=== PATIENT | female | born 1995 | race Caucasian/White ===

== ENCOUNTER 2017-01-03 12:37 | Emergency (ER) | payer MEDICAID ==
[~2017-01-03] VITALS: Ht 149.9 cm; Wt 66.8 kg
[2017-01-03 12:41] VITALS: Ht 149.9 cm; Wt 66.8 kg
--- NOTE | 2017-01-03 13:41 | ERD ---
ER Documentation Chief Complaint Date/Time DATE: 01/03/17 TIME: 13:39 Chief Complaint Sent by OB to R/O Etopic HPI 21-year-old female who is with last menstrual period on November 09 comes in with vaginal bleeding for 5 days, with left-sided abdominal pain for the past 3 days. She was sent into the emergency department by her OB who is Dr. Baeza, to rule out ectopic . She has left upper quadrant pain, she has had some mild to moderate vaginal bleeding. She has not had any fevers or chills. ROS All systems reviewed and are negative except as per history of present illness. Allergies Allergies: Coded Allergies: No Known Allergy (Unverified , 01/03/17) PMhx/Soc Medical and Surgical Hx: pt denies Surgical Hx History of Surgery: No Anesthesia Reaction: No Hx Neurological Disorder: No Hx Respiratory Disorders: Yes (Asthma) Hx Cardiac Disorders: No Hx Psychiatric Problems: No Hx Miscellaneous Medical Probl: Yes () Hx Alcohol Use: No Hx Substance Use: No Hx Tobacco Use: No Smoking Status: Current every day smoker Physical Exam Vitals Vital Signs Date Time Temp Pulse Resp B/P Pulse Ox O2 Delivery O2 Flow Rate FiO2 01/03/17 12:41 99.5 66 18 122/58 99 Physical Exam General: Well-developed, well-nourished. The patient appears in no acute distress. HEENT: Head is normocephalic, atraumatic. No scleral icterus. Neck: Supple. Nontender. Lungs: Clear to auscultation. Normal air movement. Heart: Regular rate and rhythm. S1 and S2 are normal. No murmurs, gallops, or rubs. Abdomen: Soft, patient has no tenderness to left upper quadrant nondistended. Bowel sounds are normoactive. Extremities: No clubbing or cyanosis. Normal pulses. Moving extremities x 4. No weakness. Neurologic: Alert and oriented 3. No focal deficits. Skin: Normal turgor. No rash or lesions. Result Diagram: 01/03/17 1350 Results 24 hrs Laboratory Tests Test 01/03/17 13:50 White Blood Count 10.210^3/ul Red Blood Count 4.1210^6/ul Hemoglobin 12.9g/dl Hematocrit 37.3% Mean Corpuscular Volume 90.5fl Mean Corpuscular Hemoglobin 31.3pg Mean Corpuscular Hemoglobin Concent 34.6g/dl Red Cell Distribution Width 13.0% Platelet Count 87652^3/UL Mean Platelet Volume 10.6fl Neutrophils % 67.4% Lymphocytes % 26.5% Monocytes % 5.2% Eosinophils % 0.3% Basophils % 0.3% Nucleated Red Blood Cells % 0.0/100WBC Neutrophils # 6.910^3/ul Lymphocytes # 2.710^3/ul Monocytes # 0.510^3/ul Eosinophils # 0.010^3/ul Basophils # 0.010^3/ul Nucleated Red Blood Cells # 0.010^3/ul Urine Color YELLOW Urine Clarity SLIGHTLY CLOUDY Urine pH 8.0 Urine Specific [place] 1.017 Urine Ketones NEGATIVEmg/dL Urine Nitrite NEGATIVEmg/dL Urine Bilirubin NEGATIVEmg/dL Urine Urobilinogen 1+mg/dL Urine Leukocyte Esterase NEGATIVELeu/ul Urine Microscopic RBC 0/HPF Urine Microscopic WBC 1/HPF Urine Squamous Epithelial Cells FEW/HPF Urine Hemoglobin NEGATIVEmg/dL Urine Glucose NEGATIVEmg/dL Urine Total Protein NEGATIVEmg/dl Beta HCG, Quantitative 24549.0mIU/ml PROCEDURE: US OB. CLINICAL INDICATION: 21-year-old female with vaginal bleeding. TECHNIQUE: Transabdominal and transvaginal views of the pelvis are available for review. COMPARISON: No prior studies are available for comparison. FINDINGS: The uterus is anteflexed and contains a single gestational sac. The uterus measured 8.9 cm sagittal by 5.1 cm AP. The gestational sac measured 2.1 x 1.7 x 2.2 cm. Mean sac diameter: 1.97 cm. This calculates to 6 weeks 6 days. Only debrided is identified with no pole in the gestational sac. Some free fluid is identified in the cul-de-sac. Placenta: Circumferential. Yolk Sac: 5.7 mm. Presentation: No pole is identified. [place]-rump length: heart rate: Amniotic fluid volume: Normal. No ovarian or adnexal mass lesion is seen. The left ovary measures 2.6 x 1.3 x 1.6 cm with normal blood flow on Doppler imaging. A 1.9 x 1.7 by 1.8 cm corpus luteal cyst is identified in the left ovary. The right ovary measures 2.6 x 1.3 x 1.6 cm with normal blood flow. IMPRESSION: 1. Blighted ovum with no pole identified. 2. 1.8 cm left corpus luteal cyst. 3. Normal ovaries. 4. A small amount of free fluid is noted in the cul-de-sac. RPTAT:AAJJ Babar Drake Physician Date Time Electronically viewed and signed by Babar Darke Physician on 01/03/2017 14:44 JM/ CC: SADI HARTLEY PA-C Procedures/[facility] Medical decision making: This is a 21-year-old female, presenting with vaginal bleeding and left upper quadrant abdominal pain, patient's ultrasound shows a gestational sac that is in the uterus, this was discussed with Dr. Baeza. No confirmed intrauterine seen and patient's follow-up appointment is on Friday, he sees at this time that she may follow-up with him in the point office. HCG was approximately 10,100 with a type and Rh O+. She does not meet requirements to receive RhoGam at this time. Ectopic precautions were discussed at length with the patient, which she understands. Departure Diagnosis: Primary Impression: Vaginal bleeding in Condition: SADI Chen PA-C Jan 03, 2017 13:40
[2017-01-03 13:55] LABS: ADD SCAN DIFF NO
[2017-01-03 13:57] LABS: BASOPHILS % 0.3 % (0.0-2.0); EOSINOPHILS % 0.3 % (0.0-7.0); HEMATOCRIT 37.3 % (37.0-47.0); HEMOGLOBIN 12.9 g/dl (12.0-16.0); LYMPHOCYTES # 2.7 10^3/ul (0.8-2.9); LYMPHOCYTES % 26.5 % (15.0-51.0); MEAN CORPUSCULAR HEMOGLOBIN 31.3 pg (29.0-33.0); MEAN CORPUSCULAR HGB CONC 34.6 g/dl (32.0-37.0); MEAN CORPUSCULAR VOLUME 90.5 fl (82.0-101.0); MEAN PLATELET VOLUME 10.6 fl (7.4-10.4); MONOCYTE # 0.5 10^3/ul (0.3-0.9); MONOCYTES % 5.2 % (0.0-11.0); NEUTROPHIL # 6.9 10^3/ul (1.6-7.5); NEUTROPHILS % 67.4 % (39.0-77.0); PLATELET COUNT 322 10^3/UL (140-415); RED BLOOD COUNT 4.12 10^6/ul (4.20-5.40); WHITE BLOOD COUNT 10.2 10^3/ul (4.8-10.8)
[2017-01-03 14:01] LABS: ADD UMIC NO; UR ASCORBIC ACID NEGATIVE (NEGATIVE); UR BILIRUBIN (Dip) NEGATIVE (NEGATIVE); UR BLOOD (Dip) NEGATIVE (NEGATIVE); UR CLARITY SLIGHTLY CLOUDY (CLEAR); UR COLOR YELLOW (YELLOW); UR GLUCOSE (Dip) NEGATIVE (NEGATIVE); UR KETONES (Dip) NEGATIVE (NEGATIVE); UR LEUKOCYTE ESTERASE (Dip) NEGATIVE Leu/ul (NEGATIVE); UR NITRITE (Dip) NEGATIVE (NEGATIVE); UR RBC 0 /HPF (0-5); UR SPECIFIC GRAVITY (Dip) 1.017 (1.003-1.030); UR SQUAMOUS EPITHELIAL CELL FEW /HPF (FEW); UR TOTAL PROTEIN (Dip) NEGATIVE (NEGATIVE); UR UROBILINOGEN (Dip) 1+ mg/dL (NEGATIVE)
--- NOTE | 2017-01-03 14:45 | RADRPT ---
PROCEDURE: US OB. CLINICAL INDICATION: 21-year-old female with vaginal bleeding. TECHNIQUE: Transabdominal and transvaginal views of the pelvis are available for review. COMPARISON: No prior studies are available for comparison. FINDINGS: The uterus is anteflexed and contains a single gestational sac. The uterus measured 8.9 cm sagittal by 5.1 cm AP. The gestational sac measured 2.1 x 1.7 x 2.2 cm. Mean sac diameter: 1.97 cm. This calculates to 6 weeks 6 days. Only debrided is identified with no pole in the gestational sac . Some free fluid is identified in the cul-de-sac. Placenta: Circumferential. Yolk Sac: 5.7 mm. Presentation:No pole is identified. [place]-rump length: heart rate: Amniotic fluid volume: Normal. No ovarian or adnexal mass lesion is seen. The left ovary measures 2.6 x 1.3 x 1.6 cm with normal bl ood flow on Doppler imaging. A 1.9 x 1.7 by 1.8 cm corpus luteal cyst is identified in the left ova ry. The right ovary measures 2.6 x 1.3 x 1.6 cm with normal blood flow. IMPRESSION: 1. Blighted ovum with no pole identified. 2. 1.8 cm left corpus luteal cyst. 3. Normal ovaries. 4. A small amount of free fluid is noted in the cul-de-sac. RPTAT:AAJJ Physician Wilver Date Time Electronically viewed and signed by Physician Wilver on 01/03/2017 14:44 JESSICA/
[2017-01-03 16:18] VITALS: BP 104/58; PULSE 62; RESP 12; TEMP 99.1
== END 2017-01-03 16:20 | disposition home or self-care (01) ==
LOC: FTE 12:37
DX: O20.9 Hemorrhage in early pregnancy, unspecified (principal); O99.511 Diseases of the respiratory system complicating pregnancy, first trimester; J45.909 Unspecified asthma, uncomplicated; O99.331 Smoking (tobacco) complicating pregnancy, first trimester; F17.210 Nicotine dependence, cigarettes, uncomplicated; Z3A.01 Less than 8 weeks gestation of pregnancy
CPT/HCPCS: 76801; 76817; 81001; 84702; 85025; 86900; 86901; Z7502; 81003

== ENCOUNTER 2017-01-11 11:06 | Emergency (ER) | payer MEDICAID ==
[~2017-01-11] VITALS: Ht 149.9 cm; Wt 64.0 kg
[2017-01-11 11:08] VITALS: Ht 149.9 cm; Wt 64.0 kg
[2017-01-11] MEDS ORDERED: ACETAMINOPHEN 325 MG TAB PO STA (11:18)
--- NOTE | 2017-01-11 11:25 | ERD ---
ER Documentation Chief Complaint Date/Time DATE: 01/11/17 TIME: 11:21 Chief Complaint VAG BLEED WITH CRAMPS , 8 WEEKS PREG , LMP 11/17/16 HPI This is a 21-year-old female presents emergency department for vaginal bleeding with pelvic pain while . Patient states she has severe vaginal bleeding with passage of multiple large clots. Patient was seen here previously about 1 week ago for spotting without heavy vaginal bleeding. No abdominal pain. No nausea, vomiting or diarrhea. Patient states her last menstrual period was 11/17/2016 and she believes she is currently 8 weeks . Patient is a A0. 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 No vaginal discharge, dysuria, hematuria, urinary frequency or urinary urgency. Patient is currently taking vitamins otherwise no medications. ROS All systems reviewed and are negative except as per history of present illness. Medications Home Meds Active Scripts Hydrocodone/Acetaminophen (Spencer 5-325 Tablet) 1 Each Tablet, 1 TAB PO Q6H Y for PAIN, #7 TAB Prov:TYLER LORD NP 01/11/17 Acetaminophen* (Tylenol*) 325 Mg Tablet, 1 TAB PO Q6 Y for PAIN AND OR ELEVATED TEMP, #20 TAB Prov:TYLER LORD NP 01/11/17 Allergies Allergies: Coded Allergies: No Known Allergy (Unverified , 01/11/17) PMhx/Soc History of Surgery: No Anesthesia Reaction: No Hx Neurological Disorder: No Hx Respiratory Disorders: Yes (Asthma) Hx Cardiac Disorders: No Hx Psychiatric Problems: No Hx Miscellaneous Medical Probl: Yes () Hx Alcohol Use: No Hx Substance Use: No Hx Tobacco Use: No Physical Exam Vitals Vital Signs Date Time Temp Pulse Resp B/P Pulse Ox O2 Delivery O2 Flow Rate FiO2 01/11/17 12:13 98.3 58 22 122/68 98 01/11/17 11:08 98.4 67 16 122/84 98 Physical Exam Const: Alert, anxious Head: Atraumatic Eyes: Normal Conjunctiva ENT: Normal External Ears, Nose and Mouth. Neck: Full range of motion..~ No meningismus. Resp: Clear to auscultation bilaterally. No wheezing, rhonchi or crackles. Cardio: Regular rate and rhythm, no murmurs Abd: Soft, non tender, non distended. Normal bowel sounds Skin: No petechiae or rashes Back: No midline or flank tenderness. No CVA tenderness Ext: No cyanosis, or edema Neur: Awake and alert Psych: Normal Mood and Affect Result Diagram: 01/11/17 1132 Results 24 hrs Laboratory Tests Test 01/11/17 11:32 01/11/17 11:50 White Blood Count 11.310^3/ul Red Blood Count 4.0810^6/ul Hemoglobin 12.5g/dl Hematocrit 36.7% Mean Corpuscular Volume 90.0fl Mean Corpuscular Hemoglobin 30.6pg Mean Corpuscular Hemoglobin Concent 34.1g/dl Red Cell Distribution Width 12.8% Platelet Count 99455^3/UL Mean Platelet Volume 10.6fl Neutrophils % 62.8% Lymphocytes % 31.0% Monocytes % 4.6% Eosinophils % 0.9% Basophils % 0.3% Nucleated Red Blood Cells % 0.0/100WBC Neutrophils # 7.110^3/ul Lymphocytes # 3.510^3/ul Monocytes # 0.510^3/ul Eosinophils # 0.110^3/ul Basophils # 0.010^3/ul Nucleated Red Blood Cells # 0.010^3/ul Beta HCG, Quantitative 4356.1mIU/ml Urine Color DK. YELLOW Urine Clarity BLOODY Urine pH 7.5 Urine Specific [place] 1.015 Urine Ketones NEGATIVE Urine Nitrite NEGATIVE Urine Bilirubin NEGATIVE Urine Urobilinogen 0.2 E.U./dL Urine Leukocyte Esterase NEGATIVE Urine Microscopic RBC >200/HPF Urine Bacteria FEW/HPF Urine Hemoglobin 3+ Urine Glucose 0.1%% Urine Total Protein 4+ Current Medications Medications (Trade) Dose Ordered Sig/Marquis Route PRN Reason Start Time Stop Time Status Last Admin Dose Admin Acetaminophen (Tylenol Tab) 650 mg ONCE STAT PO 01/11/17 11:18 01/11/17 11:21 DC 01/11/17 11:30 Morphine Sulfate (morphine) 4 mg ONCE STAT IV 01/11/17 11:59 01/11/17 12:01 DC 01/11/17 12:09 Procedures/[place] [id number] Radiology Main Line: [phone] DIAGNOSTIC IMAGING REPORT Patient: LAZARUS CHIU : 1995 Age: 21 Sex: F MR #: [id number] DOS: 01/11/17 1118 Ordering MD: TYLER LORD NP Location: [facility] Room/Bed: PROCEDURE: OB Ultrasound. CLINICAL INDICATION: Positive test. Vaginal bleeding. TECHNIQUE: Ultrasound of the pelvis was performed with transabdominal and transvaginal sonography in the axial and sagittal planes. COMPARISON: No prior study is available for comparison. FINDINGS: There is no intrauterine gestational sac. The uterus measures 10.5 x 4.4 x 5.3 cm. The endometrium is heterogeneous and thickened measuring 23.5 mm. The ovaries are not visualized. There is no other pelvic mass. A small amount of free fluid is present in the cul-de-sac. IMPRESSION: 1. No intrauterine gestational sac. If the patient has a positive test, ectopic gestation cannot be excluded. 2. Thickened and heterogeneous endometrium. This may indicate blood products or products of conception. 3. Ovaries not visualized. 4. Small amount of free fluid in the cul-de-sac, nonspecific. MDM: This is a 21-year-old female presenting to emergency department for vaginal bleeding with pelvic cramping while . Patient's LMP 11/09/2016 and she states she is currently 8 weeks . Patient states she is having heavy vaginal bleeding with passage of multiple large clots. Patient states pain 4-5/10 to suprapubic area. No abdominal pain. No nausea, vomiting or diarrhea. No fevers or chills. CBC is without significant anemia or infection. Beta-hCG is 4356.1 which is trending down. Type and Rh factor is O positive. Urinalysis negative for infection. Patient given Tylenol p.o. while in the ED. Upon reassessment, patient continues to have severe pain. IV access obtained per hourly sales staff and patient given 1 dose of Morphine 4mg IV. OB ultrasound reviewed by radiologist as no intrauterine gestational sac. Thickened and heterogeneous endometrium. Ovaries not visualized. Small amount of free fluid in the cul-de-sac, nonspecific . Discussed findings with patient. Upon reassessment, patient states pain has greatly improved. Vaginal bleeding has improved. Differential diagnosis includes but not limited to ectopic , threatened , missed , normal , subchorionic hemorrhage , ruptured ovarian cyst, UTI or pyelonephritis. Instructed patient to return in 2 days for repeat lab work and ultrasound. Patient is appropriate for outpatient management and will be given prescription for Tylenol and Spencer 5 mg/325 mg #7. Instructed patient to follow-up here in the ED in 2 days. Return to ED sooner for any high fever, chest pain, difficulty breathing, shortness breath, wheezing, vomiting, diarrhea, abdominal pain or any new or worsening symptoms. Patient verbalizes understanding. All questions answered at discharge. Departure Diagnosis: Primary Impression: Vaginal bleeding in patient at less than 20 weeks gestation Condition: Stable TYLER LORD NP Jan 11, 2017 11:25
[2017-01-11 11:45] LABS: BASOPHILS % 0.3 % (0.0-2.0); EOSINOPHILS # 0.1 10^3/ul (0.0-0.5); EOSINOPHILS % 0.9 % (0.0-7.0); HEMATOCRIT 36.7 % (37.0-47.0); HEMOGLOBIN 12.5 g/dl (12.0-16.0); LYMPHOCYTES # 3.5 10^3/ul (0.8-2.9); MEAN CORPUSCULAR HEMOGLOBIN 30.6 pg (29.0-33.0); MEAN CORPUSCULAR HGB CONC 34.1 g/dl (32.0-37.0); MEAN PLATELET VOLUME 10.6 fl (7.4-10.4); MONOCYTE # 0.5 10^3/ul (0.3-0.9); MONOCYTES % 4.6 % (0.0-11.0); NEUTROPHIL # 7.1 10^3/ul (1.6-7.5); NEUTROPHILS % 62.8 % (39.0-77.0); PLATELET COUNT 317 10^3/UL (140-415); RED BLOOD COUNT 4.08 10^6/ul (4.20-5.40); RED CELL DISTRIBUTION WIDTH 12.8 % (11.5-14.5); WHITE BLOOD COUNT 11.3 10^3/ul (4.8-10.8)
[2017-01-11] MEDS ORDERED: morphine 4 MG/ML VIAL IV STA (11:59)
[2017-01-11 12:17] LABS: ADD UMIC YES; UR BILIRUBIN (Dip) NEGATIVE (NEGATIVE); UR BLOOD (Dip) 3+ (NEGATIVE); UR COLOR DK. YELLOW (YELLOW); UR KETONES (Dip) NEGATIVE (NEGATIVE); UR LEUKOCYTE ESTERASE (Dip) NEGATIVE (NEGATIVE); UR NITRITE (Dip) NEGATIVE (NEGATIVE); UR TOTAL PROTEIN (Dip) 4+ (NEGATIVE); UR UROBILINOGEN (Dip) 0.2 E.U./dL (0.1-1.0)
[2017-01-11 12:37] LABS: UR CLARITY BLOODY (CLEAR)
[2017-01-11 12:43] LABS: UR BACTERIA FEW /HPF (NONE SEEN); URINE RBCS >200 /HPF (0)
--- NOTE | 2017-01-11 15:28 | RADRPT ---
PROCEDURE: OB Ultrasound. CLINICAL INDICATION: Positive test. Vaginal bleeding. TECHNIQUE: Ultrasound of the pelvis was performed with transabdominal and transvaginal sonography in the axial and sagittal planes. COMPARISON: No prior study is available for comparison. FINDINGS: There is no intrauterine gestational sac. The uterus measures 10.5 x 4.4 x 5.3 cm. The endometrium is heterogeneous and thickened measuring 23.5 mm. The ovaries are not visualized. There is no other pelvic mass. A small amount of free fluid is pre sent in the cul-de-sac. IMPRESSION: 1. No intrauterine gestational sac. If the patient has a positive test, ectopic gestatio n cannot be excluded. 2. Thickened and heterogeneous endometrium. This may indicate blood products or products of concep tion. 3. Ovaries not visualized. 4. Small amount of free fluid in the cul-de-sac, nonspecific. RPTAT: QQ .Rio Shaw MD, MD Date Time Electronically viewed and signed by .Rio Shaw MD, on 01/11/2017 15:28 .R/
[2017-01-11] MEDS ORDERED: ACET325T33 PO (15:38)
[2017-01-11] MEDS ORDERED: HYDR-906 PO (15:38)
[2017-01-11 15:50] VITALS: BP 137/78; PULSE 84; RESP 18; TEMP 98.4
== END 2017-01-11 15:50 | disposition home or self-care (01) ==
LOC: FTE 11:06
DX: O20.9 Hemorrhage in early pregnancy, unspecified (principal); J45.909 Unspecified asthma, uncomplicated; O99.511 Diseases of the respiratory system complicating pregnancy, first trimester; R10.2 Pelvic and perineal pain; Z3A.08 8 weeks gestation of pregnancy
CPT/HCPCS: 36415; 76801; 76817; 81001; 84702; 85025; 86900; 86901; 96374; J2270; Z7502; Z7610

== ENCOUNTER 2017-01-14 19:46 | Emergency (ER) | payer MEDICAID ==
[~2017-01-14] VITALS: Ht 160 cm; Wt 66.0 kg
[~2017-01-14 19:46] MED LIST: ACET325T33 PO; HYDR-906 PO
[2017-01-14 19:49] VITALS: Ht 160 cm; Wt 66.0 kg
[2017-01-14] MEDS ORDERED: ACETAMINOPHEN 500 MG TAB PO STA (20:45)
[2017-01-14 21:07] LABS: BASOPHILS % 0.4 % (0.0-2.0); EOSINOPHILS # 0.2 10^3/ul (0.0-0.5); EOSINOPHILS % 1.5 % (0.0-7.0); HEMATOCRIT 33.2 % (37.0-47.0); HEMOGLOBIN 10.8 g/dl (12.0-16.0); LYMPHOCYTES # 4.8 10^3/ul (0.8-2.9); LYMPHOCYTES % 42.1 % (15.0-51.0); MEAN CORPUSCULAR HEMOGLOBIN 29.9 pg (29.0-33.0); MEAN CORPUSCULAR HGB CONC 32.5 g/dl (32.0-37.0); MEAN PLATELET VOLUME 10.8 fl (7.4-10.4); MONOCYTE # 0.6 10^3/ul (0.3-0.9); MONOCYTES % 5.5 % (0.0-11.0); NEUTROPHIL # 5.7 10^3/ul (1.6-7.5); NEUTROPHILS % 50.2 % (39.0-77.0); PLATELET COUNT 306 10^3/UL (140-415); RED BLOOD COUNT 3.61 10^6/ul (4.20-5.40); RED CELL DISTRIBUTION WIDTH 12.9 % (11.5-14.5); WHITE BLOOD COUNT 11.3 10^3/ul (4.8-10.8)
--- NOTE | 2017-01-14 21:11 | ERD ---
ER Documentation Chief Complaint Date/Time DATE: 01/14/17 TIME: 21:10 Chief Complaint 8 weeks , vag bleeding x 1 weeks, states " i am miscarraiging' HPI This a 21-year-old female who presents the emergency department today complaining of vaginal bleeding. Patient states that that she was approximately 8 weeks . States that she has some lower pelvic pain. Denies any fevers or chills, dysuria. States she has not taken any medication for the pain ROS All systems reviewed and are negative except as per history of present illness. Medications Home Meds Active Scripts Ferrous Sulfate* (Ferrous Sulfate*) 325 Mg Tabec, 325 MG PO BID, #60 TAB Prov:LITTLE MENESES PA-C 01/14/17 Acetaminophen* (Tylophen*) 500 Mg Capsule, 1 CAP PO Q6H Y for PAIN AND OR ELEVATED TEMP, #30 CAP Prov:LITTLE MENESES PA-C 01/14/17 Hydrocodone/Acetaminophen ([place] 5-325 Tablet) 1 Each Tablet, 1 TAB PO Q6H Y for PAIN, #7 TAB Prov:TYLER LORD NP 01/11/17 Acetaminophen* (Tylenol*) 325 Mg Tablet, 1 TAB PO Q6 Y for PAIN AND OR ELEVATED TEMP, #20 TAB Prov:TYLER LORD NP 01/11/17 Allergies Allergies: Coded Allergies: No Known Allergy (Unverified , 01/11/17) PMhx/Soc History of Surgery: No Anesthesia Reaction: No Hx Neurological Disorder: No Hx Respiratory Disorders: Yes (Asthma) Hx Cardiac Disorders: No Hx Psychiatric Problems: No Hx Miscellaneous Medical Probl: Yes (, spontaneous miscarriage) Hx Alcohol Use: No Hx Substance Use: No Hx Tobacco Use: No Smoking Status: Never smoker Physical Exam Vitals Vital Signs Date Time Temp Pulse Resp B/P Pulse Ox O2 Delivery O2 Flow Rate FiO2 01/14/17 19:49 99.0 20 85 20/106 52 Physical Exam Const: No acute distress Head: Atraumatic Eyes: Normal Conjunctiva ENT: Normal External Ears, Nose and Mouth. Neck: Full range of motion..~ No meningismus. Resp: Clear to auscultation bilaterally Cardio: Regular rate and rhythm, no murmurs Abd: Soft, mild pelvic tenderness non distended. Normal bowel sounds. No tenderness [place] Skin: No petechiae or rashes Back: No midline or flank tenderness Ext: No cyanosis, or edema Neur: Awake and alert Psych: Normal Mood and Affect Result Diagram: 01/14/172052 Results 24 hrs Laboratory Tests Test 01/14/17 20:53 White Blood Count 11.310^3/ul Red Blood Count 3.6110^6/ul Hemoglobin 10.8g/dl Hematocrit 33.2% Mean Corpuscular Volume 92.0fl Mean Corpuscular Hemoglobin 29.9pg Mean Corpuscular Hemoglobin Concent 32.5g/dl Red Cell Distribution Width 12.9% Platelet Count 02607^3/UL Mean Platelet Volume 10.8fl Neutrophils % 50.2% Lymphocytes % 42.1% Monocytes % 5.5% Eosinophils % 1.5% Basophils % 0.4% Nucleated Red Blood Cells % 0.0/100WBC Neutrophils # 5.710^3/ul Lymphocytes # 4.810^3/ul Monocytes # 0.610^3/ul Eosinophils # 0.210^3/ul Basophils # 0.010^3/ul Nucleated Red Blood Cells # 0.010^3/ul Urine Color YELLOW Urine Clarity SLIGHTLY CLOUDY Urine pH 6.0 Urine Specific [place] 1.006 Urine Ketones NEGATIVEmg/dL Urine Nitrite NEGATIVEmg/dL Urine Bilirubin NEGATIVEmg/dL Urine Urobilinogen NEGATIVEmg/dL Urine Leukocyte Esterase NEGATIVELeu/ul Urine Microscopic RBC 1/HPF Urine Microscopic WBC 2/HPF Urine Squamous Epithelial Cells FEW/HPF Urine Bacteria FEW/HPF Urine Hemoglobin 3+mg/dL Urine Glucose NEGATIVEmg/dL Urine Total Protein NEGATIVEmg/dl Beta HCG, Quantitative 189.6mIU/ml Current Medications Medications (Trade) Dose Ordered Sig/Marquis Route PRN Reason Start Time Stop Time Status Last Admin Dose Admin Acetaminophen (Tylenol Tab) 500 mg ONCE STAT PO 01/14/17 20:45 01/14/17 20:47 DC 01/14/17 20:50 DIAGNOSTIC IMAGING REPORT Patient: LAZARUS CHIU : 1995 Age: 21 Sex: F MR #: [id number] DOS: 01/14/172044 Ordering MD: LITTLE MENESES PA-C Location: [facility] Room/Bed: PROCEDURE: US OB Pelvis. CLINICAL INDICATION: Vaginal bleeding, recent . Decreasing beta HCG. TECHNIQUE: Multiple sonographic images of the pelvis were obtained utilizing a transabdominal technique. The images were reviewed on a PACS workstation. COMPARISON: None. FINDINGS: The uterus is visualized and measures 7.6 x 4.4 x 6.2 cm. The endometrial echo complex is normal and measures 9 mm. There is no endometrial vascularity. No intrauterine is identified. There is no evidence for free fluid. The right ovary has a normal echotexture and measures 2.7 x 1.9 x 2.2 cm. The left ovary is not visualized.. Vascular flow is demonstrated to the right ovary. No adnexal masses are noted. IMPRESSION: 1. No sonographic evidence of retained products of conception. 2. Normal appearance of the right ovary. 3. The left ovary is not visualized. RPTAT: HTAR .Ruddy De Jesus MD, MD Date Time Electronically viewed and signed by .Ruddy De Jesus MD, MD on 01/14/2017 21:42 .R/ CC: LITTLE MENESES PA-C Procedures/[facility] This is a 21-year-old female who presents to the emergency department today complaining of vaginal bleeding. Patient states she is approximately 8 weeks. Upon review of patient's medical record she has been seen here 2 other times in the past month for vaginal bleeding in . Her last ultrasound showed no IUP and her beta quant was trending downwards. 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 Laboratory work shows a very mildly elevated white blood cell count. Her hemoglobin is decreased at 10.8. Platelets are within normal limits. There is no indication for transfusion at this time. Patient will given a prescription for iron pills. UA is negative for infection Beta quant hCG 189.6 Rh status O+ Ultrasound shows no sonographic evidence of retained products of conception. There is no intrauterine . There is no evidence of free fluid. No adnexal masses. Patient symptoms at this time is consistent with vaginal bleeding in early . Given patient's previous ultrasounds and decrease in beta quant significantly from 10 days ago patient likely has a failed or complete . I explained this to the patient. Patient is afebrile and otherwise well-appearing. I have low suspicion for ectopic , tubo ovarian abscess, ovarian torsion. Patient was given Tylenol here in the emergency department and pain improved. She was given a prescription for Tylenol for home. I also give her an iron prescription given her hemoglobin level. I have explained the results to the patient and her sister in great detail.. I have explained to the patient that they need to follow-up with her AIRFRAME DESIGN ENGINEER. Patient understood. At this time the patient is stable for discharge and outpatient management. Patient should follow up with their PCP in the next 1-2 days. They may return to the emergency department sooner for any persistent or worsening of symptoms. Patient and sister understood and agreed with the plan. Departure Diagnosis: Primary Impression: Vaginal bleeding in patient at less than 20 weeks gestation Condition: LITTLE Guerrero PA-C Jan 14, 2017 21:11
[2017-01-14 21:14] LABS: ADD UMIC YES; UR ASCORBIC ACID NEGATIVE (NEGATIVE); UR BACTERIA FEW /HPF (NONE SEEN); UR BILIRUBIN (Dip) NEGATIVE (NEGATIVE); UR BLOOD (Dip) 3+ mg/dL (NEGATIVE); UR CLARITY SLIGHTLY CLOUDY (CLEAR); UR COLOR YELLOW (YELLOW); UR GLUCOSE (Dip) NEGATIVE (NEGATIVE); UR KETONES (Dip) NEGATIVE (NEGATIVE); UR LEUKOCYTE ESTERASE (Dip) NEGATIVE Leu/ul (NEGATIVE); UR NITRITE (Dip) NEGATIVE (NEGATIVE); UR RBC 1 /HPF (0-5); UR SPECIFIC GRAVITY (Dip) 1.006 (1.003-1.030); UR SQUAMOUS EPITHELIAL CELL FEW /HPF (FEW); UR TOTAL PROTEIN (Dip) NEGATIVE (NEGATIVE); UR UROBILINOGEN (Dip) NEGATIVE (NEGATIVE)
--- NOTE | 2017-01-14 21:42 | RADRPT ---
PROCEDURE: US OB Pelvis. CLINICAL INDICATION: Vaginal bleeding, recent . Decreasing beta HCG. TECHNIQUE: Multiple sonographic images of the pelvis were obtained utilizing a transabdominal tech nique. The images were reviewed on a PACS workstation. COMPARISON: None. FINDINGS: The uterus is visualized and measures 7.6 x 4.4 x 6.2 cm. The endometrial echo complex is normal and measures 9 mm. There is no endometrial vascularity. No intrauterine is identified. Ther e is no evidence for free fluid. The right ovary has a normal echotexture and measures 2.7 x 1.9 x 2.2 cm. The left ovary is not vis ualized.. Vascular flow is demonstrated to the right ovary. No adnexal masses are noted. IMPRESSION: 1. No sonographic evidence of retained products of conception. 2. Normal appearance of the right ovary. 3. The left ovary is not visualized. RPTAT: HTAR .Ruddy De Jesus MD, Date Time Electronically viewed and signed by .Ruddy De Jesus MD, on 01/14/2017 21:42 .R/
[2017-01-14] MEDS ORDERED: FER325 PO (22:48)
[2017-01-14] MEDS ORDERED: ACET500C5 PO (22:48)
[2017-01-14 23:09] VITALS: BP 109/56; PULSE 98; RESP 16
== END 2017-01-14 23:11 | disposition home or self-care (01) ==
LOC: FTE 19:46
DX: O20.9 Hemorrhage in early pregnancy, unspecified (principal); O99.511 Diseases of the respiratory system complicating pregnancy, first trimester; J45.909 Unspecified asthma, uncomplicated; R10.2 Pelvic and perineal pain; Z3A.08 8 weeks gestation of pregnancy
CPT/HCPCS: 36415; 76801; 81001; 84702; 85025; Z7502

== ENCOUNTER 2018-09-17 20:57 | Emergency (ER) | payer SELFPAY ==
[~2018-09-17] VITALS: Ht 149.9 cm; Wt 65.7 kg
[~2018-09-17 20:57] MED LIST changes: +ACET500C5 PO; +FER325 PO; +HYDR-4011 PO; -HYDR-906 PO
[2018-09-17 21:29] VITALS: BP 128/61; PULSE 80; RESP 18; Ht 149.9 cm; Wt 65.7 kg
[2018-09-18] MEDS ORDERED: ACETAMINOPHEN 500 MG TAB PO STA (01:40)
--- NOTE | 2018-09-18 01:40 | ERD ---
ER Documentation Chief Complaint Chief Complaint vaginal bleeding/abd pain x 1 hour. states 8 weeks HPI This is a 22-year-old female who presents here in emerge department with com plaints of vaginal bleeding, pelvic pain for about an hour. States that she is 8 weeks . LMP: Patient unsure of the exact date of her last menstrual period. M1. Denies headache, head injury, loss of consciousness, dizziness, neck pain, neck stiffness, throat pain, difficulty swallowing, difficulty breathing lying flat, shoulder pain, chest pain, back pain, abdominal pain, nausea, vomiting, constipation, diarrhea, urinary symptoms, loss of bowel and bladder control, trauma, injury, falls, difficulty walking due to pain, numbness or tingling sensation, calf pain, recent travel, recent major surgery in the last 3 weeks, calf pain, recent long travel, recent exposure to any illness, recent antibiotic use in the last 3 months, fever, chills, seizures. Past medical history: Surgical history: Social: Denies smoking, use of alcoholic beverages, use of illegal drugs. ROS All systems reviewed and are negative except as per history of present illness. Medications Home Meds Active Scripts Acetaminophen* (Tylophen*) 500 Mg Capsule, 1 CAP PO Q6H PRN for PAIN AND OR ELEVATED TEMP, #20 CAP Prov:JOHNATHAN ELAM 09/18/18 Vit No.124/Iron/FA ( Vitamin Tablet) 1 Each Tablet, 1 EACH PO DAILY, #30 TAB Prov:JOHNATHAN ELAM 09/18/18 Ferrous Sulfate* (Ferrous Sulfate*) 325 Mg Tabec, 325 MG PO BID, #60 TAB Prov:LITTLE MENESES PA-C 01/14/17 Acetaminophen* (Tylophen*) 500 Mg Capsule, 1 CAP PO Q6H PRN for PAIN AND OR ELEVATED TEMP, #30 CAP Prov:LITTLE MENESES PA-C 01/14/17 Hydrocodone/Acetaminophen (Protection 5-325 Tablet) 1 Each Tablet, 1 TAB PO Q6H PRN for PAIN, #7 TAB Prov:TYLER LORD NP 01/11/17 Acetaminophen* (Tylenol*) 325 Mg Tablet, 1 TAB PO Q6 PRN for PAIN AND OR ELEVATED TEMP, #20 TAB Prov:TYLER LORD NP 01/11/17 Allergies Allergies: Coded Allergies: No Known Allergy (Unverified , 01/11/17) PMhx/Soc History of Surgery: No Anesthesia Reaction: No Hx Neurological Disorder: No Hx Respiratory Disorders: Yes (Asthma) Hx Cardiac Disorders: No Hx Psychiatric Problems: No Hx Miscellaneous Medical Probl: Yes (, spontaneous miscarriage) Hx Alcohol Use: No Hx Substance Use: No Hx Tobacco Use: No Physical Exam Vitals Physical Exam Const: No acute distress Head: Atraumatic Eyes: Normal Conjunctiva ENT: Normal External Ears, Nose and Mouth. Neck: Full range of motion. No meningismus. Resp: Clear to auscultation bilaterally Cardio: Regular rate and rhythm, no murmurs Abd: Soft, non tender, non distended. Normal bowel sounds. Negative Reyes sign. Negative Monse sign (heel jar test). Negative psoas sign. Negative Rovsing sign. No CVA tenderness. Ambulatory with steady gait without pain to abdomen. Skin: No petechiae or rashes. Color appears normal for ethnicity. No skin tenting. No signs of dehydration. Back: No midline or flank tenderness Ext: No cyanosis, or edema Neur: Awake and alert. No neurological deficit. Psych: Normal Mood and Affect Results 24 hrs Laboratory Tests Test 09/18/18 01:56 White Blood Count 12.4 10^3/ul Red Blood Count 4.05 10^6/ul Hemoglobin 12.0 g/dl Hematocrit 36.1 % Mean Corpuscular Volume 89.1 fl Mean Corpuscular Hemoglobin 29.6 pg Mean Corpuscular Hemoglobin Concent 33.2 g/dl Red Cell Distribution Width 12.8 % Platelet Count 317 10^3/UL Mean Platelet Volume 10.4 fl Immature Granulocytes % 0.500 % Neutrophils % 66.8 % Lymphocytes % 26.9 % Monocytes % 4.9 % Eosinophils % 0.6 % Basophils % 0.3 % Nucleated Red Blood Cells % 0.0 /100WBC Immature Granulocytes # 0.060 10^3/ul Neutrophils # 8.3 10^3/ul Lymphocytes # 3.3 10^3/ul Monocytes # 0.6 10^3/ul Eosinophils # 0.1 10^3/ul Basophils # 0.0 10^3/ul Nucleated Red Blood Cells # 0.0 10^3/ul Urine Color YELLOW Urine Clarity SLIGHTLY CLOUDY Urine pH 5.0 Urine Specific [place] 1.019 Urine Ketones NEGATIVE mg/dL Urine Nitrite NEGATIVE mg/dL Urine Bilirubin NEGATIVE mg/dL Urine Urobilinogen NEGATIVE mg/dL Urine Leukocyte Esterase TRACE Kuldip/ul Urine Microscopic RBC 0 /HPF Urine Microscopic WBC 1 /HPF Urine Squamous Epithelial Cells FEW /HPF Urine Mucus FEW /HPF Urine Hemoglobin NEGATIVE mg/dL Urine Glucose NEGATIVE mg/dL Urine Total Protein NEGATIVE mg/dl Sodium Level 139 mmol/L Potassium Level 3.8 mmol/L Chloride Level 104 mmol/L Carbon Dioxide Level 23 mmol/L Anion Gap 12 Blood Urea Nitrogen 8 mg/dl Creatinine 0.36 mg/dl Est Glomerular Filtrat Rate mL/min > 60 mL/min Glucose Level 81 mg/dl Calcium Level 9.2 mg/dl Total Bilirubin 0.1 mg/dl Direct Bilirubin 0.00 mg/dl Indirect Bilirubin 0.1 mg/dl Aspartate Amino Transf (AST/SGOT) 19 IU/L Alanine Aminotransferase (ALT/SGPT) 18 IU/L Alkaline Phosphatase 69 IU/L Total Protein 7.4 g/dl Albumin 4.2 g/dl Globulin 3.20 g/dl Albumin/Globulin Ratio 1.31 Amylase Level 100 U/L Lipase 117 U/L Beta HCG, Quantitative 056353.0 mIU/ml Current Medications Medications Dose Sig/Marquis Start Time Status Last (Trade) Ordered Route PRN Stop Time Admin Dose Reason Admin 500 mg ONCE STAT 09/18/18 DC 09/18/18 Acetaminophen PO 01:40 02:30 (Tylenol 09/18/18 01:43 Tab) Procedures/MDM Diagnostic tests: Urinalysis: Reviewed. Culture urine: Sent. HCG quantitative: [id number]. Type and Rh: O+. Blood works: Reviewed. OB ultrasound: Limited study as only transabdominal scanning was performed and the bladder was not filled for the study. There are 2 intrauterine gestational sacs with yolk sacs and poles with detectable heart rates. Estimated gestational age is 7 weeks and 6 days for twin A and 7 weeks and 4 days for twin B. The ovaries were not able to be seen and although subchorionic bleed was not detected, sensitivity is significantly decreased without transvaginal scanning. Treatment: Tylenol p.o. Re-evaluation: Denies back pain, pelvic pain, abdominal pain. Denies vaginal bleeding. No CVA tenderness. No abdominal tenderness. No signs of hemorrhaging. Stated he feels much better at this time and that she is ready to go home. Differential diagnosis I have low suspicion for ectopic , hemorrhaging, pyelonephritis, appendicitis, pancreatitis, cholecystitis. Final diagnosis: Pelvic pain in . Vaginal bleeding . Prescription: Tylenol. vitamins. Follow-up with OB in the next 24-48 hours. Come back here in the emergency department for any new symptoms or any worsening symptoms. All questions and concerns were answered. Patient and family members verbalized understanding and agreed with plan of care. Hemodynamically stable on discharge. Departure Diagnosis: Primary Impression: Vaginal bleeding in patient at less than 20 weeks gestation Additional Impression: Intrauterine Condition: Stable Additional Instructions: Follow-up with OB in the next 24-48 hours. Come back here in the emergency department for any new symptoms or any worsening symptoms. JOHNATHAN ELAM Sep 18, 2018 01:40
[2018-09-18] MEDS ORDERED: PREN-93 PO (04:59)
[2018-09-18] MEDS ORDERED: ACET500C5 PO (04:59)
== END 2018-09-18 05:44 | disposition home or self-care (01) ==
LOC: FTE 20:57
DX: O20.9 Hemorrhage in early pregnancy, unspecified (principal); R10.2 Pelvic and perineal pain; O99.52 Diseases of the respiratory system complicating childbirth; J45.909 Unspecified asthma, uncomplicated; Z3A.01 Less than 8 weeks gestation of pregnancy
CPT/HCPCS: 76801; 80053; 81001; 82150; 83690; 84702; 85025; 86900; 86901; 87086